=== PATIENT | female | born 1970 | race Caucasian/White ===

== ENCOUNTER 2017-02-22 11:51 | Emergency (ER) | payer OTHER ==
[~2017-02-22] VITALS: Ht 162.6 cm; Wt 72.8 kg
[2017-02-22 11:55] VITALS: BP 139/82; PULSE 84; RESP 16; TEMP 98.9
--- NOTE | 2017-02-22 12:13 | PD ---
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 She has some mild cramping but denies any current abdominal pains. She denies any nausea, vomiting, fevers, lightheadedness, or any other issues. She is concerned about the irregular menses. Modifying Factors: None Associated Signs & Symptoms: Vaginal bleeding for 11 days Risk Factors: None PFSH Past Medical History ?: Unknown LMP: 01/26/17 Social History Tobacco Use: No Allergies-Medications (Allergen,Severity, Reaction): Coded Allergies: No Known Allergies (Unverified , 02/22/17) Reported Meds & Prescriptions Reported Meds & Active Scripts Active No Active Prescriptions or Reported Medications Review of Systems Except as stated in HPI: all other systems reviewed are Neg Physical Exam Narrative GENERAL: Well-developed middle age white female patient currently none acute distress. Awake and oriented 3. SKIN: Focused skin assessment warm/dry. HEAD: Atraumatic. Normocephalic. EYES: Pupils equal and round. No scleral icterus. No injection or drainage. ENT: No nasal bleeding or discharge. Mucous membranes pink and moist. NECK: Trachea midline. No JVD. CARDIOVASCULAR: Regular rate and rhythm. No murmur appreciated. RESPIRATORY: No accessory muscle use. Clear to auscultation. Breath sounds equal bilaterally. GASTROINTESTINAL: Abdomen soft, non-tender, nondistended. Hepatic and splenic margins not palpable. Benign. GENITOURINARY: Normal external genitalia without lesions or erythema. Vaginal vault with blood and clots with no drainage. Cervical os was closed without drainage. No cervical motion tenderness. Uterus nontender and nonenlarged. Bilateral adnexa nontender without masses. MUSCULOSKELETAL: No obvious deformities. No clubbing. No cyanosis. No edema. NEUROLOGICAL: Awake and alert. No obvious cranial nerve deficits. Motor grossly within normal limits. Normal speech. PSYCHIATRIC: Appropriate mood and affect; insight and judgment normal. Data Data Last Documented VS Vital Signs Date Time Temp Pulse Resp B/P Pulse Ox O2 Delivery O2 Flow Rate FiO2 5/5/17 13:10 72 18 132/83 98 Room Air 02/22/17 11:55 98.9 Orders Beta Hcg (Quant/Titer) (02/22/17 12:10) Complete Blood Count With Diff (02/22/17 12:10) Basic Metabolic Panel (Bmp) (02/22/17 12:10) Urinalysis - C+S If Indicated (02/22/17 12:10) Labs Laboratory Tests Test 02/22/17 02/22/17 12:20 12:30 Urine Collection Type CLEAN CATCH Urine Color YELLOW Urine Turbidity CLEAR Urine pH 6.0 Urine Specific [place] 1.028 Urine Protein TRACE mg/dL Urine Glucose (UA) NEG mg/dL Urine Ketones NEG mg/dL Urine Occult Blood LARGE Urine Nitrite NEG Urine Bilirubin NEG Urine Leukocyte Esterase NEG Urine RBC 50-99 /hpf Urine WBC 3-5 /hpf Urine Squamous Epithelial > 8 /hpf Cells Urine Bacteria FEW /hpf Urine Mucus FEW /lpf Microscopic Urinalysis Comment CULT NOT INDICATED Urine Collection Time 12:20 White Blood Count 5.8 TH/MM3 Red Blood Count 4.37 MIL/MM3 Hemoglobin 13.6 GM/DL Hematocrit 39.7 % Mean Corpuscular Volume 90.8 FL Mean Corpuscular Hemoglobin 31.2 PG Mean Corpuscular Hemoglobin 34.4 % Concent Red Cell Distribution Width 12.1 % Platelet Count 220 TH/MM3 Mean Platelet Volume 7.4 FL Neutrophils (%) (Auto) 62.4 % Lymphocytes (%) (Auto) 32.1 % Monocytes (%) (Auto) 3.8 % Eosinophils (%) (Auto) 1.3 % Basophils (%) (Auto) 0.4 % Neutrophils # (Auto) 3.6 TH/MM3 Lymphocytes # (Auto) 1.9 TH/MM3 Monocytes # (Auto) 0.2 TH/MM3 Eosinophils # (Auto) 0.1 TH/MM3 Basophils # (Auto) 0.0 TH/MM3 CBC Comment DIFF FINAL Differential Comment Sodium Level 140 MEQ/L Potassium Level 3.8 MEQ/L Chloride Level 101 MEQ/L Carbon Dioxide Level 32.5 MEQ/L Anion Gap 7 MEQ/L Blood Urea Nitrogen 15 MG/DL Creatinine 0.91 MG/DL Estimat Glomerular Filtration 66 ML/MIN Rate Random Glucose 170 MG/DL Calcium Level 8.6 MG/DL Human Chorionic Gonadotropin, LESS THAN 1 Quant MIU/ML MDM Medical Decision Making Medical Screen Exam Complete: Yes Emergency Medical Condition: Yes Medical Record Reviewed: Yes Interpretation(s) Laboratory Tests Test 02/22/17 02/22/17 12:20 12:30 Urine Occult Blood LARGE (NEG) Urine RBC 50-99 /hpf (0-3) Urine Squamous Epithelial > 8 /hpf (0-5) Cells Urine Bacteria FEW /hpf (NONE) Urine Mucus FEW /lpf (OCC) Carbon Dioxide Level 32.5 MEQ/L (21.0-32.0) Estimat Glomerular Filtration 66 ML/MIN (>89) Rate Random Glucose 170 MG/DL (74-106) Differential Diagnosis Pelvic cramping pains, vaginal bleeding for 11 daysdysfunctional uterine bleeding versus threatened AB versus ectopic Narrative Course Abdomen is benign and pelvic exam shows bleeding but is otherwise unremarkable. H&H is stable vital signs are stable. At this point, my plan would be to put her on OCP and have her follow-up with [facility]. Return for any worsening in bleeding, or new issues as needed. The plan has been discussed with the patient and she states understanding. Diagnosis Primary Impression: Dysfunctional uterine bleeding Med/Other Pt SpecificInfo: Prescription(s) given Scripts Ibuprofen (Motrin Ib)200 Mg [id number] Mg PO Q6H PRN (PAIN SCALE 1 TO 10) #20 TAB Ref 0 Prov:Sona Benrardo MD 02/22/17 Norethindrone-Ethinyl Estradiol (Ortho-Novum )1-35 Mg-Mcg Tab1 Tab PO DAILY #1 PACK Ref 0 Prov:Sona Bernardo MD 02/22/17 Disposition: 01 DISCHARGE HOME Condition: Stable Sona Bernardo MD February 22, 2017 12:13
[2017-02-22 12:39] VITALS: BP 147/79; PULSE 88; RESP 18; O2SAT 99
[2017-02-22 12:40] LABS: AUTOMATED NEUTROPHIL # 3.6 TH/MM3 (1.8-7.7); BASOPHIL % 0.4 % (0.0-2.0); EOSINOPHIL # 0.1 TH/MM3 (0-0.4); EOSINOPHIL % 1.3 % (0.0-4.0); HEMATOCRIT 39.7 % (35.0-46.0); HEMO FLAGS DIFF FINAL; LYMPH % 32.1 % (9.0-44.0); LYMPHOCYTE # 1.9 TH/MM3 (1.0-4.8); MEAN CELL VOLUME 90.8 FL (80.0-100.0); MEAN CORPUSCULAR HEMOGLOBIN 31.2 PG (27.0-34.0); MEAN CORPUSCULAR HGB CONC 34.4 % (32.0-36.0); MONO % 3.8 % (0.0-8.0); NEUT % 62.4 % (16.0-70.0); PLATELET COUNT 220 TH/MM3 (150-450); RED BLOOD COUNT 4.37 MIL/MM3 (4.00-5.30); RED CELL DISTRIBUTION WIDTH 12.1 % (11.6-17.2); WHITE BLOOD COUNT 5.8 TH/MM3 (4.0-11.0)
[2017-02-22 12:41] LABS: BLOOD, URINE LARGE (NEG); GLUCOSE,URINE NEG (NEG); KETONE, URINE NEG (NEG); NITRITE,URINE NEG (NEG)
[2017-02-22 12:48] LABS: METHOD OF COLLECTION CLEAN CATCH; MUCUS URINE FEW /lpf (OCC); URINE COLOR YELLOW (YELLW/STRAW)
[2017-02-22 12:49] LABS: BACTERIA, URINE FEW /hpf; COMMENT (UR) CULT NOT INDICATED; CULTURE IF INDICATED CULT NOT INDICATED; SQUAMOUS EPITHELIAL CELL URINE > 8 /hpf (0-5)
[2017-02-22 12:51] LABS: CHLORIDE 101 MEQ/L (98-107); POTASSIUM 3.8 MEQ/L (3.5-5.1); SODIUM (NA) 140 MEQ/L (136-145)
[2017-02-22 12:54] LABS: ANION GAP 7 MEQ/L (5-15); BICARBONATE 32.5 MEQ/L (21.0-32.0); BLOOD UREA NITROGEN 15 MG/DL (7-18)
[2017-02-22 12:57] LABS: GLOMERULAR FILTRATION RATE 66 ML/MIN (>89)
[2017-02-22 13:02] LABS: BETA HCG QUANT LESS THAN 1 MIU/ML (0-5)
[2017-02-22 13:10] VITALS: BP 132/83; PULSE 72; RESP 18; O2SAT 98
[2017-02-22] MEDS ORDERED: MOTR200T4 PO (13:38)
[2017-02-22] MEDS ORDERED: ORTH1TAB PO (13:38)
== END 2017-02-22 14:00 | disposition home or self-care (01) ==
LOC: PHED 11:51
DX: N93.8 Other specified abnormal uterine and vaginal bleeding (principal); I45.6 Pre-excitation syndrome
CPT/HCPCS: 80048; 81001; 84702; 85025; 99284